=== PATIENT | female | born 1995 ===

== ENCOUNTER 2020-10-22 12:09 | Emergency (ER) | payer MEDICAID ==
[~2020-10-22] VITALS: Ht 172.7 cm; Wt 151.0 kg
[2020-10-22 12:29] VITALS: BP 155/81
[2020-10-22 15:15] LABS: MICROSCOPIC INDICATED
[2020-10-22 15:21] LABS: BASOPHILS % (AUTO) 1 % (0-1); EOSINOPHILS % (AUTO) 0 % (1-7); LYMPHOCYTES % (AUTO) 26 % (22-44); MEAN PLATELET VOLUME 8.4 fL (7.4-10.4); MONOCYTES % (AUTO) 12 % (2-9); NEUTROPHILS % (AUTO) 61 % (42-75); PLATELET COUNT 291 x10^3/uL (130-400); RED BLOOD COUNT 5.31 x10^6/uL (3.82-5.3); RED CELL DISTRIBUTION WIDTH 20.4 % (9.6-15.2)
[2020-10-22 15:35] LABS: ALANINE AMINOTRANSFERASE 22 U/L (12-78); ALBUMIN 3.2 g/dL (3.4-5.0); ANION GAP 5 mmol/L (5-15); CALCIUM 8.6 mg/dL (8.5-10.1); CHLORIDE 104 mmol/L (98-107); CREATININE 0.94 mg/dL (0.55-1.02)
[2020-10-22 15:40] LABS: ALKALINE PHOSPHATASE 66 U/L (45-117); BILIRUBIN,TOTAL 0.2 mg/dL (0.2-1.0); TOTAL PROTEIN 8.3 g/dL (6.4-8.2)
[2020-10-22 15:41] LABS: MEAN CORPUSCULAR HGB CONC 29.7 g/dL (32.4-35.8)
[2020-10-22 15:42] LABS: <PLATELET ESTIMATE> ADEQUATE; <PLT MORPHOLOGY> NORMAL PLT MORPH
[2020-10-22 15:52] LABS: ANISOCYTOSIS 1+; HYPOCHROMIA 1+; MICROCYTOSIS 2+
--- NOTE | 2020-10-22 23:55 | NUR ---
[id number] FOR PROVIDER RECHECK
--- NOTE | 2020-10-23 01:08 | NUR ---
NA X 2
--- NOTE | 2020-10-23 01:51 | NUR ---
NIL X3
== END 2020-10-23 01:52 | disposition left against medical advice (07) ==
LOC: ED 13:00
DX: M54.9 Dorsalgia, unspecified (principal); R10.30 Lower abdominal pain, unspecified; R30.0 Dysuria
CPT/HCPCS: 36415; 80053; 81001; 84703; 85025; 87086; 99283

== ENCOUNTER 2020-10-25 22:17 | Emergency (ER) | payer MEDICAID ==
[~2020-10-25] VITALS: Ht 172.7 cm; Wt 148.5 kg
[2020-10-25 22:21] VITALS: BP 138/75
--- NOTE | 2020-10-26 00:18 | NUR ---
ERP AT BEDSIDE
[2020-10-26] MEDS ORDERED: ONDANSETRON ODT 8 MG PO ONE (00:30)
[2020-10-26] MEDS ORDERED: BENZONATATE 100 MG CAPSULE PO ONE (00:30)
[2020-10-26] MEDS ORDERED: BENZONATATE 100 MG CAPSULE ONE ×2 (00:45→01:01)
[2020-10-26] MEDS ORDERED: ONDANSETRON ODT 4 MG ONE (00:45)
== END 2020-10-26 01:25 ==
LOC: ED 10-26 01:09
DX: J06.9 Acute upper respiratory infection, unspecified (principal); R11.2 Nausea with vomiting, unspecified
CPT/HCPCS: 99283; Q0162